=== PATIENT | female | born 1990 | race Caucasian/White ===

== ENCOUNTER → 2019-07-01 14:45 | Outpatient (BNVA) | payer OTHER, SELFPAY | PROVIDERS: Visit Provider Nurse Practitioner Women's Health | DX: Z34.80 Encounter for supervision of other normal pregnancy, unspecified trimester (principal); Z34.82 Encounter for supervision of other normal pregnancy, second trimester | CPT/HCPCS: 84315 ==

== ENCOUNTER → 2019-07-28 09:10 | Outpatient (BNVA) | payer OTHER, SELFPAY | PROVIDERS: Visit Provider Obstetrics & Gynecology | DX: Z34.93 Encounter for supervision of normal pregnancy, unspecified, third trimester (principal) | CPT/HCPCS: 82950; 84315; 85027 ==

== ENCOUNTER → 2019-08-11 10:40 | Outpatient (BNVA) | payer OTHER, SELFPAY | PROVIDERS: Visit Provider Obstetrics & Gynecology Female Pelvic Medicine and Reconstructive Surgery | DX: Z01.89 Encounter for other specified special examinations (principal) | CPT/HCPCS: 84315 ==

== ENCOUNTER → 2019-08-26 15:10 | Outpatient (BNVA) | payer OTHER, SELFPAY | PROVIDERS: Visit Provider Nurse Practitioner Women's Health | DX: Z01.89 Encounter for other specified special examinations (principal) | CPT/HCPCS: 84315 ==

== ENCOUNTER → 2019-09-08 15:37 | Outpatient (BNVA) | payer OTHER, SELFPAY | PROVIDERS: Visit Provider Obstetrics & Gynecology | DX: Z01.89 Encounter for other specified special examinations (principal) | CPT/HCPCS: 84315 ==

== ENCOUNTER → 2019-09-24 10:06 | Outpatient (BNVA) | payer OTHER, SELFPAY | PROVIDERS: Visit Provider Obstetrics & Gynecology | DX: Z34.83 Encounter for supervision of other normal pregnancy, third trimester (principal) | CPT/HCPCS: 84315; 87081 ==

== ENCOUNTER → 2019-09-29 10:32 | Outpatient (BNVA) | payer OTHER, SELFPAY | PROVIDERS: Visit Provider Obstetrics & Gynecology | DX: Z46.89 Encounter for fitting and adjustment of other specified devices (principal) | CPT/HCPCS: 84315 ==

== ENCOUNTER → 2019-10-08 08:31 | Outpatient (BNVA) | payer OTHER, SELFPAY | PROVIDERS: Visit Provider Obstetrics & Gynecology | DX: Z01.89 Encounter for other specified special examinations (principal) | CPT/HCPCS: 84315 ==

== ENCOUNTER → 2019-10-13 11:07 | Outpatient (BNVA) | payer OTHER, SELFPAY | PROVIDERS: Visit Provider Obstetrics & Gynecology | DX: Z34.93 Encounter for supervision of normal pregnancy, unspecified, third trimester (principal) | CPT/HCPCS: 84315 ==

== ENCOUNTER 2019-10-18 00:22 | Inpatient (IN) | payer OTHER, SELFPAY ==
[2019-10-17 21:15] VITALS: BP 117/75; PULSE 69; RESP 18; TEMP 36.4
[2019-10-17 22:27] VITALS: BMI 25.5
[2019-10-17 22:35] VITALS: BP 117/75; PULSE 69; RESP 16; TEMP 36.4
[2019-10-17 22:38] VITALS: BP 120/75; PULSE 64; RESP 18
[2019-10-17 22:39] VITALS: BP 120/75; PULSE 64
[2019-10-18] VITALS (23 sets, daily range): BP systolic 0–134; BP diastolic 0–77; PULSE 64–75; RESP 16–18; TEMP 36.6–37.1; O2SAT 96–98
[2019-10-18 01:19] LABS: Basophils % 0.2 %; Eosinophils % 0.2 %; Hematocrit 35.8 % (37.0-47.0); Hemoglobin 11.9 g/dL (11.5-15.3); Lymphocytes # 1.6 10^3/uL (0.8-4.8); Lymphocytes % 17.2 %; Mean Corpuscular HGB Conc 33.2 g/dL (30.0-36.0); Mean Corpuscular Hemoglobin 31.5 pg (28.0-34.0); Mean Corpuscular Volume 94.7 fL (81-99); Mean Platelet Volume 11.7 fL (7.4-10.4); Monocytes # 0.8 10^3/uL (0.2-0.9); Monocytes % 8.2 %; Neutrophils # 6.7 10^3/uL (1.8-7.7); Neutrophils % 73.4 %; Nucleated Red Blood Cells % 0 %; Platelet Count 231 10^3/cmm (130-400); Red Blood Count 3.78 10^6/uL (4.1-5.3); Red Cell Distribution Width 12.2 % (12.1-15.1); White Blood Count 9.2 10^3/uL (4.0-10.0)
[2019-10-18] MEDS: oxytocin 30 UNIT/500 ML BAG 600 UNIT IV (02:03)
--- NOTE | 2019-10-18 02:10 | P.PCNOB_ITS ---
Delivery Note: Date of delivery: October 18, 2019 Pre-delivery diagnoses: Term Post-delivery diagnoses: Term delivered Procedure: Spontaneous vaginal delivery Op report anesthesia: None Delivering Physician: Chay Worrell M.D. Estimated blood loss (mL): 300 Findings: Baby girl, Apgars 9/9, weight 3630 g Pre-Delivery Course: The patient is a 29yo at 39+5 weeks EGA who has been receiving care [place] [facility]. She has been experiencing painful uterine contractions for the past 5 hours. The contractions are occurring at 2-3 minute intervals with approximately 40 second duration. She continues to feel movement between the contractions. She denies vaginal bleeding or rupture of membranes. LMP: Unsure Estimated date of confinement: 10/19/2019 By ultrasound CC: Onset of labor at term. HPI: Received appropriate care. Daily vitamins since two months prior to conception. labs have all been normal, including negative for HIV. She was found to Negative for Group B Strep from screening at 36 weeks. She has gained approximately 19 lbs throughout the . She denies a history of HTN during . Glucose tolerance screening for gestational diabetes was negative. Delivery: The patient was noted to be complete and pushing, so was placed in the dorsal lithotomy position, prepped and draped in the usual sterile fashion for a vaginal delivery. Pt. Noted to have epidural anesthesia. The patient delivered a viable female infant at 39 weeks weighing 3630 g with scores of 8 and 9 at one and five minutes, respectively. The vertex was delivered spontaneously over Intact perineum. The patient was asked to push and the head delivered spontaneously in the BASIL position, over an intact perineum. A nuchal cord was checked and None noted. The anterior shoulder delivered easily and the posterior shoulder followed. The remainder of the was easily delivered and the oropharynx and nasopharynx was bulb suctioned. The was noted to have spontaneous cry and spontaneous movement of all four extremities. The cord was clamped x 2 and cut and noted to have 2 arteries and one vein. The infant was passed to the Mother's abdomen where Nursing personnel were in attendance. The placenta delivered intact Spontaneously and the uterus Was explored. 20 units of Pitocin was placed in the IV bag to firm the uterus. Examination of the cervix and vaginal vault did not reveal any lacerations. A vaginal pack was then placed. Examination of the perineum showed No lacerations. The vaginal pack was then removed. The patient tolerated this procedure well, and recovered in L&D with her infant and taken to the [facility]. All sponge and needle counts were correct. A&P Assessment and plan (1) Term delivered: Status: Acute Coding Level of Care Code Acute Events Solutions Consultant for Chg Fwd Diagnoses Term delivered O80
--- NOTE | 2019-10-18 05:51 | PC.NURSE ---
there was a note stating that dr weinberg wanted to take care of this patient regardless if she was propulsion systems engineer for women's health or not. this nurse attempted multiple times to reach dr weinberg from shortly after patient's arrival at 0 on 10/17/2019 and was unsuccessful and called dr fleming at [id number] on 10/17/2019 for orders.
[2019-10-18] MEDS: docusate sodium 100 mg Capsule PO ×2 (09:47→18:57)
[2019-10-18] MEDS: prenatal vitamin Capsule 1 CAP PO (09:48)
[2019-10-18 13:52] LABS: Hematocrit 35.1 % (37.0-47.0); Hemoglobin 11.7 g/dL (11.5-15.3); Mean Corpuscular HGB Conc 33.3 g/dL (30.0-36.0); Mean Corpuscular Hemoglobin 31.5 pg (28.0-34.0); Mean Corpuscular Volume 94.6 fL (81-99); Mean Platelet Volume 11.6 fL (7.4-10.4); Platelet Count 209 10^3/cmm (130-400); Red Blood Count 3.71 10^6/uL (4.1-5.3); Red Cell Distribution Width 12.3 % (12.1-15.1); White Blood Count 9.5 10^3/uL (4.0-10.0)
[2019-10-19 04:35] VITALS: BP 103/65; PULSE 61; RESP 18; TEMP 36.6; O2SAT 97
[2019-10-19] MEDS: docusate sodium 100 mg Capsule PO (10:22)
[2019-10-19] MEDS: prenatal vitamin Capsule 1 CAP PO (10:23)
--- NOTE | 2019-10-19 10:25 | P.DS_ITS ---
Discharge Providers COMMUNICATIONS FIELD TECHNICIAN Date of Admission: 10/18/19 00:22 Date of Discharge: 10/19/19 Attending Provider at Admission: Chay Worrell MD Attending Provider at Discharge: Xuan Hernandez MD Diagnoses at Discharge Discharge Diagnosis (1) Term delivered: Status: Acute Problem details: Status post spontaneous vaginal delivery Reason for Visit Reason for Visit: Reason For Visit: labor Hospital Course Hospital Course: The patient is a 29yo at 39+5 weeks EGA who [place] [facility]. She has been experiencing painful uterine contractions for the past 5 hours. The contractions are occurring at 2-3 minute intervals with approximately 40 second duration. She continues to feel movement between the contractions. She denies vaginal bleeding or rupture of membranes. LMP: Unsure Estimated date of confinement: 10/19/2019 By ultrasound CC: Onset of labor at term. HPI: Received appropriate care. Daily vitamins since two months prior to conception. labs have all been normal, including negative for HIV. She was found to Negative for Group B Strep from screening at 36 weeks. She has gained approximately 19 lbs throughout the . She denies a history of HTN during . Glucose tolerance screening for gestational diabetes was negative. The patient was admitted to labor and delivery with contractions. She progressed to have a spontaneous vaginal delivery without complications. She delivered a male infant on 10/18/2019 at 0 157 Apgars 8/9 with a weight of 3630 g. observation was uneventful. She is afebrile and hemodynamically stable. Tolerating diet well, undulating without difficulty. Patient refers she is planning to use OCP for contraception but also her is planning to have a vasectomy. Information Peripartum Data: Delivery Method: Vaginal (Male infant, Apgars 8/9, weight 3630 g) Episiotomy description: None complications: none Physical Exam Narrative: EXAM NARRATIVE: GA; alert and oriented x 3 HEENT: normal Breasts: engorged Nipples - skin intact Lungs; clear to auscultation Heart: regular rhythm, no murmurs. Abd: Appropriately tender. BS+. Uterine fundus below umbilicus. No Fundal Tenderness. Perineum: normal lochia. Extremities: no edema, no cyanosis, no tenderness. Discharge Data Data Completed and Pending: Labs from last 24 hours 10/18/19 13:45 WBC 9.5 RBC 3.71 L Hgb 11.7 Hct 35.1 L MCV 94.6 MCH 31.5 MCHC 33.3 RDW 12.3 Plt Count 209 MPV 11.6 H Vitals: Last Vital Signs Temp 97.8 F 10/19/19 04:35 Pulse 61 10/19/19 04:35 Resp 18 10/19/19 04:35 BP 103/65 10/19/19 04:35 Pulse Ox 97 10/19/19 04:35 Discharge Plan Discharge Patient Disposition: Home, Self-Care Condition: Stable Prescriptions: New ibuprofen 800 mg Tablet 800 mg PO TID Qty: 60 RF: 0 docusate sodium 100 mg Capsule 100 mg PO BID Qty: 60 RF: 0 ferrous sulfate 325 mg (65 mg iron) Tablet,Delayed Release (Dr/Ec) 325 mg PO DAILY Qty: 60 RF: 0 Continued acetaminophen [Tylenol Extra Strength] 500 mg tablet 500 mg PO Q4H RF: 0 Discharge Orders: Discharge Order (Routine); Ordered 10/19/19 Ordered By: Chay Worrell Referrals: Chay Worrell MD [Physician] - (Please call your 's office tomorrow to schedule your 6 week check up. ) Discharge Diet: Regular Discharge Activity: Increase activity as tolerated Patient Instructions: Vitamins (By mouth), OB Discharge Report, OB Food/Drug Interaction Guide, OB Care at Home, OB Home Care, OB Proud Parent Packet, OB Vaginal Deliveries Activity Restrictions/Additional Instructions: Pelvic rest for 6 weeks (no sex, no tampons, no vaginal douches). Return to the emergency room if any fever, increased bleeding or pain. Discharge Attestations COMMUNICATIONS FIELD TECHNICIAN Time Spent in Discharge Care*: greater than 30 min Specific Discharge Activities: Specific discharge activities: educating patient and educating and/or supporting family/caregiver Coding Level of Care Code Acute Defensive Fire Control Systems Operator for Radha Fwd Diagnoses Term delivered O80
[2019-10-19 10:30] VITALS: BP 132/84; PULSE 83; RESP 17; TEMP 36.3; O2SAT 98
== END 2019-10-19 11:25 | disposition home or self-care (01) | DRG 807 ==
LOC: OBGYN 00:31 → OPOB 00:31
PROVIDERS: Admitting Provider Obstetrics & Gynecology; Visit Provider Obstetrics & Gynecology
DX: O80 Encounter for full-term uncomplicated delivery (principal); Z37.0 Single live birth; Z3A.39 39 weeks gestation of pregnancy
CPT/HCPCS: 12345; 36415; 59025; 59409; 85025; 85027; 99211

== ENCOUNTER → 2021-12-19 15:54 | Outpatient (BNVA) | payer OTHER, SELFPAY | PROVIDERS: Visit Provider Obstetrics & Gynecology | DX: Z12.4 Encounter for screening for malignant neoplasm of cervix (principal) | CPT/HCPCS: 87624 ==